=== PATIENT | female | born 1955 | race Hispanic/Latino ===

== ENCOUNTER 2017-07-15 07:24 | Outpatient (CLI) | payer BC | END 2017-07-15 07:25 | disposition home or self-care (01) | LOC: BICMRI 07:24 | PROVIDERS: ATTEND Specialist | DX: M51.16 Intervertebral disc disorders with radiculopathy, lumbar region (principal); M48.07 Spinal stenosis, lumbosacral region; M99.83 Other biomechanical lesions of lumbar region; M47.24 Other spondylosis with radiculopathy, thoracic region | CPT/HCPCS: 72148 ==

== ENCOUNTER 2018-04-14 13:32 | Outpatient (CLI) | payer BC ==
--- NOTE | 2018-04-14 14:33 | RAD ---
LUMBAR SPINE SERIES FOUR VIEWS: History: Back pain, pain radiating down right leg. FINDINGS: The vertebral bodies are normal in height. There is fairly pronounced degenerative changes seen. Ther e is some mild disc narrowing at L1-2 and L2-3, more pronounced disc narrowing at L3-4 and spondyloli sthesis of approximately 8 mm of L4 on L5 with minimal disc narrowing. Pedicles are intact. On the flexion and extension views, there is limited motion demonstrated. There appears to be minimal increase in the listhesis on flexion. IMPRESSION: Arthritic changes of the spine. Spondylolisthesis of L4 on L5 which appears to increase slightly in f lexion. POS: TPC
== END 2018-04-14 13:33 | disposition home or self-care (01) ==
LOC: BICRAD 13:32
PROVIDERS: ATTEND Neurological Surgery
DX: M47.26 Other spondylosis with radiculopathy, lumbar region (principal); M43.16 Spondylolisthesis, lumbar region
CPT/HCPCS: 72120

== ENCOUNTER 2018-05-21 00:07 | Outpatient (CLI) | payer BC ==
[2018-05-21 12:32] LABS: Hemoglobin 14.6 g/dL (12.0-16.0); Mean Corpuscular HGB CONC 34.5 g/dL (32.0-36.0); Mean Corpuscular Hemoglobin 30.1 pg (27.0-31.0); Mean Corpuscular Volume 87.3 fL (78.0-98.0); Mean Platelet Volume 8.1 fL (7.4-10.4); Platelet Count 193 thou/uL (130-400); RBC Distribution Width 11.2 % (11.5-14.5); Red Blood Cell (RBC) Count 4.84 mill/uL (4.20-5.40); White Blood Cell (WBC) Count 6.2 thou/uL (4.8-10.8)
[2018-05-21 13:25] LABS: PTT 28.6 SEC (22.9-36.1); Prothrombin Time 13.3 SEC (12.0-14.7)
== END 2018-05-21 00:08 | disposition home or self-care (01) ==
LOC: LABBT 00:07
PROVIDERS: ATTEND Neurological Surgery
DX: Z01.812 Encounter for preprocedural laboratory examination (principal); M48.061 Spinal stenosis, lumbar region without neurogenic claudication
CPT/HCPCS: 85027; 85610; 85730

== ENCOUNTER 2018-05-21 11:30 | Inpatient (IN) | payer BC ==
--- NOTE | 2018-05-19 07:35 | HP ---
HISTORY OF PRESENT ILLNESS: Ms. Tiesha Rodriguez is a very pleasant 62-year-old woman with chronic right-sided low back and radiating right leg pain. She has been evaluated for this years past and has managed her pain with injections with Dr. Cruz and her primary care physician, her sister also Dr. Cruz. 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 She feels she is getting some weakness in the right leg and some numbness and tingling there as well. At the end of days work, her back and legs are aching. It is difficult to lift her leg into the car to drive home. The pain is affecting her sleep at night. Lifting the straight leg on the right side exacerbates her pain. If she can get her back in just the proper position and leaning away from the right leg and keeping weight off that side, she seems to do a bit better. She is not having any left leg symptoms at all. She does not have any bowel or bladder symptoms to report. PAST MEDICAL HISTORY: Chronic allergies, diabetes, and osteoarthritis. PAST SURGICAL HISTORY: She denies past surgical history. MEDICATIONS: 1. Metformin. 2. Lyrica. 3. Aleve. ALLERGIES: CODEINE, WHICH CAUSES ITCHING AND VOMITING. FAMILY HISTORY: Ms. Rodriguez's mother has . She has diabetes. Father has of unknown cause. She has 3 children, who are alive with hypertension. SOCIAL HISTORY: The patient denies tobacco or other drug use and she denies alcohol use as well. REVIEW OF SYSTEMS: A 10-point review of systems has been completed and is negative other than in the above HPI. PHYSICAL EXAMINATION: VITAL SIGNS: Weight 194, height 62 inches. NEUROLOGIC: Cranial nerves intact. Gait antalgic, even weight off the right leg. Cerebellar exam, no truncal ataxia. No dysmetria. Motor examination; iliopsoas is strong on both sides, the quadriceps is strong, the EHL is strong and toe flexors are strong on both sides. She does have moderate weakness in the quadriceps on the right and anterior tibialis on the right. Sensory exam, there is no dermatomal sensory loss in L1, L2, L3, L4, L5, or S1. Reflexes are preserved at the ankles and are hypoactive on the left knee and absent on the right knee. Toes are downgoing. There is no clonus. Lower extremity exam, there is a positive straight leg raise on the right. Spine exam, there is moderate tenderness in the SI joint. IMAGING: I reviewed MR imaging of the lumbar spine. There is some moderate lateral recess stenosis L3-L4. At L4-L5, there is a far lateral disk herniation under the L4 nerve root. There is left-sided foraminal disease at L5-S1. Flexion- extension views grade 1 to 2 listhesis, not seen on MR at L4-L5 unstable in flexion-extension, greater than 1 mm. ASSESSMENT AND PLAN: Intervertebral disk disorder with radiculopathy of the lumbar region and spondylolisthesis of the lumbar region. Dr. Neff has offered decompression L3 through L5 with TLIF L4-L5. The patient has obtained informed consent. We have discussed the indications, risks, benefits, alternatives, expected results from surgery. The risks discussed included, but were not limited to, bleeding, infection, CSF leak, nerve damage, weakness, incontinence, cauda equina injury, arachnoiditis, paralysis, ventilator dependence, wheelchair dependence, loss of vision, hardware misplacement, cardiopulmonary complications of anesthesia or . Long-term complications discussed include, but were not limited to, degeneration of surrounding disks and the need for further surgery. The patient states she understands the risks and is willing to proceed with surgery. Job ID: [id number] [facility]
[2018-05-21 11:58] VITALS: BMI 34.5
[2018-05-25] MEDS ORDERED: Bupivacaine HCl 0.5%/Epinephrine 1:200,000/PF 30 ml Vial ONE (06:17)
[2018-05-25] MEDS ORDERED: Thrombin 5000 UNITS/5 ML VIAL ONE (06:18)
[2018-05-25] MEDS ORDERED: Sodium Chloride 0.9% 20 ML ONE (06:18)
[2018-05-25] MEDS ORDERED: Fentanyl 100 MCG/2 ML VIAL ONE ×4 (06:19→12:16)
[2018-05-25] MEDS ORDERED: Midazolam HCl 2 mg/2 ml Vial ONE (06:45)
[2018-05-25] MEDS ORDERED: Phenylephrine HCL 10 MG/ML VIAL ONE (08:32)
[2018-05-25] MEDS ORDERED: PROPOFOL 200 MG/20 ML VIAL ONE (09:01)
[2018-05-25] MEDS ORDERED: Glycopyrrolate 0.2 MG/ML 5 ML SYRINGE ONE (09:01)
[2018-05-25] MEDS ORDERED: ePHEDrine 50 MG/ML VIAL ONE (09:01)
[2018-05-25] MEDS ORDERED: Lidocaine 1% PF 5 ML VIAL ONE (09:01)
[2018-05-25] MEDS ORDERED: Rocuronium Bromide 10 MG/ML (10ML VIAL) ONE (09:01)
[2018-05-25] MEDS ORDERED: Ketorolac Tromethamine 30 MG/ML VIAL ONE (09:01)
[2018-05-25] MEDS ORDERED: Ondansetron PF 4 MG/2 ML Vial ONE (09:01)
[2018-05-25] MEDS ORDERED: PHENYLEPHRINE-NS 100 MCG/ML 10 ML SYRINGE ONE (09:01)
[2018-05-25] MEDS ORDERED: Mag-Al 1200 mg/1200 mg/30 ML UDCUP PO PRN (11:15)
[2018-05-25] MEDS ORDERED: Bisacodyl 10 MG SUPP PR PRN (11:15)
[2018-05-25] MEDS ORDERED: Milk Of Magnesia 30 ML UDCUP PO PRN (11:15)
[2018-05-25] MEDS ORDERED: Acetaminophen 650 MG Suppository PR PRN (11:15)
[2018-05-25] MEDS ORDERED: Promethazine HCl 25 MG/ML VIAL IM PRN ×2 (11:15→11:26)
[2018-05-25] MEDS ORDERED: Promethazine 25 MG TAB PO PRN (11:15)
[2018-05-25] MEDS ORDERED: Ondansetron PF 4 MG/2 ML Vial IVP PRN (11:15)
[2018-05-25] MEDS ORDERED: Acetaminophen/Codeine 30-300mg Tablet PO PRN (11:15)
[2018-05-25] MEDS ORDERED: diphenhydrAMINE 50 MG/ML VIAL IVP PRN (11:15)
[2018-05-25] MEDS ORDERED: Ondansetron HCl/PF 4 MG/2 ML Vial IVP PRN (11:26)
[2018-05-25] MEDS ORDERED: Morphine Sulfate 2 MG/ML SYRINGE SLOW IVP PRN (11:26)
[2018-05-25] MEDS ORDERED: Promethazine HCl 25 MG/ML VIAL SLOW IVP PRN (11:26)
--- NOTE | 2018-05-25 11:26 | OP ---
DATE OF PROCEDURE: 05/25/2018 [employer]RI[facility] [employer] SET UP OPERATOR RADIAL: Martha Clayton PA-C. PREOPERATIVE INDICATION: Treat pain and prevent neurological deterioration. PREOPERATIVE DIAGNOSES: Multilevel lumbar stenosis causing neurogenic claudication, unstable spondylolisthesis at L4-L5. POSTOPERATIVE DIAGNOSES: Multilevel lumbar stenosis causing neurogenic claudication, unstable spondylolisthesis at L4-L5. PROCEDURES PERFORMED: Decompressive laminectomy, medial facetectomy, foraminotomy L3-L4, L4-L5, transforaminal lumbar interbody arthrodesis with placement of intervertebral biomechanical device, L4-L5; posterolateral arthrodesis, L4-L5; pedicle screw and jaden instrumentation, L4-L5. PREOPERATIVE MEDICATIONS: Ancef 2 g IV. DRAIN NUMBER: 1. DRAIN TYPE: A 10-Icelandic Boyd. DESCRIPTION OF PROCEDURE: The patient was brought to the operating room. General endotracheal anesthesia was induced. The patient was positioned prone on the Candido frame with the appropriate padding for the chest and hips. A lateral fluoro radiograph was used to plan our incision. The lumbar skin was sterilely prepped and draped. We opened with a 10 blade knife and controlled bleeding with bipolar and monopolar cautery. We used monopolar cautery to dissect through subcutaneous tissues to the thoracodorsal fascia. We incised the fascia in the midline and reflected the paraspinal muscles off the spinous process and lamina of the L3, L4, and L5. A self-retaining retractor was placed and a lateral fluoro radiograph confirmed the levels upon which we were operating. We then placed a self-retaining retractor. We carried the dissection over the facet joints to identify the transverse process of L4 and L5 bilaterally. Using Adson and Kerrison rongeurs, we fashioned a laminectomy from L3 to the L5 lamina. We widened our laminectomy defect by performing medial facetectomies. We performed foraminotomies over the exiting nerve roots. The right L4 nerve root was the most compressed. We elected to open this foramen to access intervertebral space. We removed the pars interarticularis and the facet joint at L4-L5 on the right side. Through this opening, we accessed the intervertebral disk. We emptied disk contents using curettes and rongeurs. We brought a rectangular shaped bone rasp into the field. We measured the height of the interspace with bone rasps and found it to measure 11 mm in height. When the endplates were prepared for grafting, we brought a PEEK intervertebral graft into the field. The bone removed from our laminectomy was carefully morselized on the back table after soft tissue was removed from it. The morselized bone was added to demineralized bone matrix to form a fusion substrate and the substrate was packed into the center of the PEEK graft. The PEEK graft was advanced into the interspace under radiographic guidance to the appropriate depth. We turned our attention to pedicle screw instrumentation. Using bony anatomic landmarks, palpation of the medial portion of the pedicles, and a lateral fluoro radiograph as our guide, we chose the entry points for our pedicle screws. We advanced the bone awl through the pedicles into the vertebral bodies. We tapped the trajectories and we probed them. We found them completely encased in bone. We placed 6.5 mm diameter screws, which were 45 mm in length into the four pedicles. We generated a 360-degree image set using our isocentric C-arm, confirming adequate positioning of our pedicle screws at L4 and L5. We then irrigated copiously with bacitracin irrigation. We decorticated the transverse processes of L4 and L5 bilaterally. We placed rods into the screw heads and tightened caps over the rods. Using a torque/counter-torque mechanism, we ensured adequate tightness. After we had compressed across the interspace to keep our interbody graft in place. Over the decorticated transverse processes, we left demineralized bone matrix and morselized autograft as our posterior lateral fusion substrate. We controlled bleeding with gentle bipolar cautery. We tunneled the drain inferiorly through a separate stab incision. We treated the wound with vancomycin powder. We closed the wound in anatomical layers. We applied a sterile dressing. This was a clean case, no contamination. Job ID: [id number]
[2018-05-25] MEDS ORDERED: CHOLECALCIFEROL PO SCH (11:45)
[2018-05-25] MEDS ORDERED: Morphine 2 MG/ML SYRINGE ONE ×2 (12:19→12:49)
[2018-05-25] MEDS ORDERED: Promethazine HCl 25 MG/ML VIAL ONE (13:03)
[2018-05-25] MEDS ORDERED: CEFAZOLIN 2 GM in Premix Bag 1 BAG IVPB SCH (14:00)
[2018-05-25] MEDS: Sodium Chloride 0.9% 1,000 ML IV SCH ×2 (14:48→22:30)
[2018-05-25] MEDS: Morphine 4 MG/ML VIAL SLOW IVP PRN ×2 (15:08→16:41)
[2018-05-25] MEDS: metFORMIN 500 MG TAB PO SCH (16:55)
[2018-05-25] MEDS: Acetaminophen/Codeine 30-300mg Tablet PO PRN ×2 (17:40→22:30)
[2018-05-25] MEDS: CEFAZOLIN 2 GM in Premix Bag 1 BAG IVPB SCH (18:45)
[2018-05-25] MEDS: tiZANidine HCl 4 MG TAB PO PRN (21:16)
[2018-05-26] MEDS: CEFAZOLIN 2 GM in Premix Bag 1 BAG IVPB SCH ×2 (03:34→12:37)
[2018-05-26] MEDS: Acetaminophen 325 MG TAB PO PRN ×3 (03:53→16:26)
[2018-05-26] MEDS: metFORMIN 500 MG TAB PO SCH ×2 (08:00→17:21)
[2018-05-26] MEDS ORDERED: traMADol HCl 50 MG TAB PO PRN (08:15)
--- NOTE | 2018-05-26 08:39 | PRG ---
DATE OF SERVICE: 05/26/2018 I saw Tiesha Rodriguez in her hospital room this morning. She is postop day 1 from decompression and fusion of lumbar spine. Overnight, she had fever and difficulty with pain control. Her drain output, according to the nurse, was scant. 35 mL have been reported. On physical examination, Ms. Rodriguez is up and walking with assistance. She is getting to the bathroom and sitting. Her legs are moving well. There are no morning labs. No urinalysis. No chest x-ray to review. I do not know the glucose status currently. Plan is for Ms. Rodriguez to begin mobilization. She needs a chairback TLSO brace and I prefer [facility] due to their careful instruction and careful followup, which we have not experienced with the providers in the hospital. I asked Medicine to visit with her to help manage her diabetes and get a urinalysis and urine culture. We will get a chest x-ray. If the drain output remains low in spite of ambulation, then we will remove the drain today. She should be wearing a brace when she is up and out of bed. Job ID: [id number]
[2018-05-26] MEDS: traMADol HCl 50 MG TAB PO PRN (08:44)
--- NOTE | 2018-05-26 09:01 | PRG ---
DATE OF SERVICE: 05/26/2018 SUBJECTIVE: Ms. Rodriguez is 1 day postop following laminectomy and TLIF. She is resting in her hospital bed when I entered. She does report pain, worse on back of her right leg compared to the left. She states that it is very similar to prior to surgery. She has been up using the restroom; however not walking the halls or working with physical therapy. The patient had a T-max of 101.3 and at 3:40 this morning, there was a drop in the blood pressure, overnight as well, the lowest reported was 75/41. This morning, it increased to 115/52. Fluids had been increased, respirations 16, heart rate 99. JENNIFER drain was at 35 ml in 12 hours. We will get a UA, checking if this is the source of her fever.We will remove her drain. We have encouraged her to use incentive spirometer regularly and continue to mobilize and work with PT. Job ID: [id number] MTDD
--- NOTE | 2018-05-26 10:33 | RAD ---
TWO VIEW CHEST: Comparison: 04-02-12 FINDINGS: Re-demonstration of a right suprahilar opacity. There is patchy opacification of the bilateral lower lung zones, new. Chest otherwise similar. IMPRESSION: 1. Interval development of multifocal pulmonary parenchymal opacities of the mid to inferior lung zon es bilaterally which may be related to atypical bilateral pneumonia. 2. Stable prominence of right suprahilar region which may relate to persistent area of vascular promi nence, similar to prior exam. POS: TPC
[2018-05-26 11:56] LABS: #Monocytes 0.6 thou/uL (0.11-0.59); #Neutrophils 6.9 thou/uL (1.40-6.50); %Basophils 0.2 % (0.0-1.0); %Eosinophils 0.4 % (0.0-10.0); %Lymphocytes 11.4 % (21.0-51.0); %Monocytes 6.8 % (0.0-10.0); %Neutrophils 81.1 % (42.0-75.0); Hemoglobin 11.4 g/dL (12.0-16.0); Mean Corpuscular HGB CONC 33.5 g/dL (32.0-36.0); Mean Corpuscular Hemoglobin 29.7 pg (27.0-31.0); Mean Corpuscular Volume 88.5 fL (78.0-98.0); Mean Platelet Volume 8.5 fL (7.4-10.4); Platelet Count 140 thou/uL (130-400); RBC Distribution Width 11.3 % (11.5-14.5); Red Blood Cell (RBC) Count 3.84 mill/uL (4.20-5.40); White Blood Cell (WBC) Count 8.5 thou/uL (4.8-10.8)
[2018-05-26] MEDS: Morphine 4 MG/ML VIAL SLOW IVP PRN ×2 (12:16→18:45)
[2018-05-26 12:41] LABS: Bilirubin Negative (Negative); Blood, Urine Negative (Negative); Clarity CLOUDY (Clear); Glucose, Urine (Dipstick) Negative (Negative); Leukocyte Small (Negative); Nitrite Negative (Negative); Protein, Urine (Dipstick) Negative (Neg-Trace); Specific Gravity, Urine 1.022 (1.002-1.036); Urobilinogen 0.2 mg/dL (0.2-1.0); pH, Urine 5.5 (5.0-9.0)
[2018-05-26 12:46] LABS: Bacteria/HPF None Seen HPF (None Seen); Hyaline Casts/LPF NONE SEEN LPF (0-3 Hyaline); RBC/HPF None Seen HPF (0-3)
[2018-05-26] MEDS: Sodium Chloride 0.9% 1,000 ML IV SCH (15:13)
[2018-05-26] MEDS: tiZANidine HCl 4 MG TAB PO PRN (20:54)
[2018-05-26] MEDS: Acetaminophen/Codeine 30-300mg Tablet PO PRN (20:55)
[2018-05-27] MEDS: Sodium Chloride 0.9% 1,000 ML IV SCH ×2 (05:29→21:04)
[2018-05-27] MEDS: tiZANidine HCl 4 MG TAB PO PRN (05:29)
[2018-05-27] MEDS: traMADol HCl 50 MG TAB PO PRN ×2 (05:29→21:04)
--- NOTE | 2018-05-27 07:48 | PRG ---
DATE OF SERVICE: 05/27/2018 I saw Tiesha Rodriguez in her hospital room this morning. She has been transferred to the general postoperative floor. She complains of some right lateral thigh tightness and tenderness over the greater trochanteric bursa. Ms. Rodriguez had fever since her operation, peaking yesterday at 102 degrees Fahrenheit. Her neurological examination this morning is stable. The drain output was minimal yesterday and was removed. Laboratory investigations did not reveal leukocytosis. There is no bacteria in the urinalysis. However, the chest x-ray shows some opacifications. My plan today is to have her evaluated for inpatient rehabilitation. She will need to work with Physical Therapy for more aggressive mobilization. Internal Medicine/Hospitalist Service was consulted 2 days ago yet floor administration did not forward the request. We are awaiting their input on the fever. She most likely had a community-acquired lung infection that she brought with her to the hospital, as this immediate postoperative fever would be unusual for hospital acquired event. Once we have an antibiotic plan and disposition arranged, she can be transferred to inpatient rehabilitation. Job ID: [id number] MTDD
--- NOTE | 2018-05-27 09:31 | PDOC.EVN ---
Event Note - Event Note Event Note: Patient was found to have a Sound Hospitalist consult pending from 05/25/18. The consult was not called in untill late last night when [place] was [place] [facility] [place] [id number].Discussed with Charge Nurse at [place] [id number] today,Ms Wilkins to file an IRIS report.IM team will follow.
[2018-05-27] MEDS ORDERED: HumaLOG 300 UNITS/3 ML VIAL SC PRN ×2 (09:32)
[2018-05-27] MEDS ORDERED: Dextrose 50% Abboject 50 ML SYRINGE SLOW IVP PRN (09:32)
[2018-05-27] MEDS ORDERED: Dextrose 5% in Water 1,000 ML IV PRN (09:32)
[2018-05-27] MEDS: metFORMIN 500 MG TAB PO SCH ×2 (10:07→19:26)
[2018-05-27] MEDS: diphenhydrAMINE 25 MG CAP PO PRN ×2 (10:08→23:29)
[2018-05-27 11:16] LABS: #Lymphocytes 1.2 thou/uL (1.20-3.40); #Monocytes 0.5 thou/uL (0.11-0.59); #Neutrophils 4.6 thou/uL (1.40-6.50); %Basophils 0.3 % (0.0-1.0); %Eosinophils 0.7 % (0.0-10.0); %Monocytes 8.5 % (0.0-10.0); %Neutrophils 72.5 % (42.0-75.0)
[2018-05-27 11:33] LABS: Anion Gap 8 mmol/L (10-20); BUN (Urea Nitrogen) 9 mg/dL (9.8-20.1); Calc. Creatinine Clearance 95 mL/min (70-130); Calcium 7.9 mg/dL (7.8-10.44); Carbon Dioxide 27 mmol/L (23-31); Chloride 104 mmol/L (98-107); Estimated GFR-MDRD 77; Glucose 216 mg/dL (80-115); Potassium 3.5 mmol/L (3.5-5.1); Sodium 135 mmol/L (136-145)
[2018-05-27 11:51] LABS: Hemoglobin 9.5 g/dL (12.0-16.0); Mean Corpuscular HGB CONC 33.9 g/dL (32.0-36.0); Mean Corpuscular Hemoglobin 30.5 pg (27.0-31.0); Mean Corpuscular Volume 89.8 fL (78.0-98.0); Mean Platelet Volume 8.5 fL (7.4-10.4); Platelet Count 109 thou/uL (130-400); Platelet Morphology Comment Appears Decreased; Red Blood Cell (RBC) Count 3.11 mill/uL (4.20-5.40); White Blood Cell (WBC) Count 6.4 thou/uL (4.8-10.8)
--- NOTE | 2018-05-27 14:33 | PDOC.PN ---
- Subjective Encounter Start Date: 05/27/18 Encounter Start Time: 14:32 Subjective: seen and examined.care discussed w family at bedside -: feels better but c/o itching,soreness in back at surgical site -: walking w RW w family - Objective MAR Reviewed: Yes Vital Signs & Weight: Vital Signs (12 hours) Temp Pulse Resp BP Pulse Ox 05/27/18 11:31 100.6 F H 89 92 H 107/70 93 L 05/27/18 08:24 98.5 F 85 18 98/65 92 L 05/27/18 04:15 99.7 F H 100 20 117/64 93 L Weight Weight 177 lb I&O: 05/26/18 05/27/18 05/28/18 06:59 06:59 06:59 Intake Total 1000 Output Total 35 Balance -35 1000 Result Diagrams: 05/27/18 10:53 05/27/18 10:53 Additional Labs: Accuchecks 05/27/18 05/26/18 11:15 17:28 POC Glucose 208 H 169 H Laboratory Tests 05/26/18 05/27/18 11:25 10:53 Neutrophils % 81.1 H 72.5 Phys Exam - Physical Examination Constitutional: NAD HEENT: PERRLA, moist MMs, sclera anicteric, oral pharynx no lesions Neck: no nodes, no JVD, supple, full ROM Respiratory: no wheezing, no rales, no rhonchi, clear to auscultation bilateral Cardiovascular: RRR, no significant murmur, no rub Gastrointestinal: soft, non-tender, no distention, positive bowel sounds Musculoskeletal: no edema, pulses present Neurological: non-focal, normal sensation, moves all 4 limbs Psychiatric: normal affect, A&O x 3 Skin: no rash Dx/Plan (1) PNA (pneumonia) Code(s): J18.9 - PNEUMONIA, UNSPECIFIED ORGANISM Status: Acute Comment: likely aspiration (2) Fever Code(s): R50.9 - FEVER, UNSPECIFIED Status: Acute Comment: Likley due to # 1.Not on any DVT prophylaxis but very ambulatory.Less likelihood of clots (3) Postoperative anemia Code(s): D64.9 - ANEMIA, UNSPECIFIED Status: Acute Comment: Monitor (4) DM2 (diabetes mellitus, type 2) Status: Chronic (5) Status post lumbar spine operative procedure for decompression of spinal cord Code(s): Z98.890 - OTHER SPECIFIED POSTPROCEDURAL STATES Status: Acute (6) Obesity (BMI 30.0-34.9) Code(s): E66.9 - OBESITY, UNSPECIFIED Status: Chronic - Plan plan discussed w/ family, DVT proph w/SCDs leucocytosis improving.add IV levaquin,mucinex,prn nebs,IS -: send blood Cx.UA clean.CXR reviewed.stat CBC & BMP checked and largley WNL -: clinically stable. afebrile for now -: add ISS. -: OT,PT,pain control.IM team will follow * . Review of Systems - Review of Systems Constitutional: negative: fever, chills, sweats, weakness, malaise, other Eyes: negative: Pain, Vision Change, Conjunctivae Inflammation, Eyelid Inflammation, Redness, Other Respiratory: negative: Cough, Dry, Shortness of Breath, Hemoptysis, SOB with Excertion, Pleuritic Pain, Sputum, Wheezing Cardiovascular: negative: chest pain, palpitations, orthopnea, paroxysmal nocturnal dyspnea, edema, light headedness, other Gastrointestinal: negative: Nausea, Vomiting, Abdominal Pain, Diarrhea, Constipation, Melena, Hematochezia, Other Genitourinary: negative: Dysuria, Frequency, Incontinence, Hematuria, Retention , Other Musculoskeletal: negative: Neck Pain, Shoulder Pain, Arm Pain, Back Pain, Hand Pain, Leg Pain, Foot Pain, Other Neurological: negative: Weakness, Numbness, Incoordination, Change in Speech, Confusion, Seizures, Other - Medications/Allergies Allergies/Adverse Reactions: Allergies Allergy/AdvReac Type Severity Reaction Status Date / Time No Known Allergies Allergy Verified 05/25/18 14:37 Medications: Current Medications Acetaminophen (Tylenol) 650 mg PO Q4H PRN PRN Reason: Headache/Fever or Pain Last Admin: 05/26/18 16:26 Dose: 650 mg Acetaminophen (Tylenol) 650 mg SD Q4H PRN PRN Reason: Headache/Fever or Pain Acetaminophen/Codeine Phosphate (Tylenol #3) 1 tab PO Q3H PRN PRN Reason: Mild Pain (1-3) Last Admin: 05/27/18 10:08 Dose: 1 tab Acetaminophen/Codeine Phosphate (Tylenol #3) 2 tab PO Q3H PRN PRN Reason: Moderate Pain (4-6) Last Admin: 05/26/18 20:55 Dose: 2 tab Al Hydroxide/Mg Hydroxide (Maalox) 30 ml PO Q4H PRN PRN Reason: Indigestion Albuterol/Ipratropium (Duoneb) 3 ml NEB [id number] PRN PRN Reason: SOB &/or Wheezing Bisacodyl (Dulcolax) 10 mg SD Q12H PRN PRN Reason: Constipation Dextrose/Water (Dextrose 50%) 25 gm SLOW IVP PRN PRN PRN Reason: Hypoglycemia Diphenhydramine HCl (Benadryl) 25 mg IVP Q6H PRN PRN Reason: Itching Diphenhydramine HCl (Benadryl) 25 mg PO Q6H PRN PRN Reason: Itching Last Admin: 05/27/18 10:08 Dose: 25 mg Glucagon (Glucagon) 1 mg IM PRN PRN PRN Reason: Hypoglycemia Guaifenesin (Mucinex) 600 mg PO Q12HR MONIE Sodium Chloride (Normal Saline 0.9%) 1,000 mls @ 75 mls/hr IV .[id number] MONIE Last Admin: 05/27/18 05:29 Dose: 1,000 mls Dextrose/Water (D5w) 1,000 mls @ 0 mls/hr IV .Q0M PRN PRN Reason: Hypoglycemia Levofloxacin 500 mg/ Device 100 mls @ 100 mls/hr IVPB 1100 MONIE Insulin Human Lispro (Humalog) 0 units SC .MODERATE SLIDING SC PRN PRN Reason: Moderate Correctional Scale Insulin Human Lispro (Humalog) 0 units SC .BEDTIME SLIDING SC PRN PRN Reason: Bedtime Correctional Scale Magnesium Hydroxide (Milk Of Magnesium) 30 ml PO Q12H PRN PRN Reason: Constipation Metformin HCl (Glucophage) 500 mg PO BID-[facility] Last Admin: 05/27/18 10:07 Dose: 500 mg Morphine Sulfate (Morphine) 2 mg SLOW IVP Q1H PRN PRN Reason: Moderate Breakthrough Pain Last Admin: 05/25/18 16:41 Dose: 2 mg Morphine Sulfate (Morphine) 4 mg SLOW IVP Q1H PRN PRN Reason: Severe Breakthrough Pain Last Admin: 05/26/18 18:45 Dose: 4 mg Ondansetron HCl (Zofran) 4 mg IVP DAILYPRN PRN PRN Reason: Nausea Pantoprazole Sodium (Protonix) 40 mg PO DAILY [facility] Last Admin: 05/27/18 10:07 Dose: 40 mg Cholecalciferol ( Vitamin D3) [Decara] 1 Tab 0 each PO Q7D MONIE Promethazine HCl (Phenergan) 12.5 mg PO Q4H PRN PRN Reason: Nausea/Vomiting Promethazine HCl (Phenergan) 12.5 mg IM Q4H PRN PRN Reason: Nausea/Vomiting Sodium Chloride (Flush - Normal Saline) 10 ml IVF PRN PRN PRN Reason: Saline Flush Last Admin: 05/26/18 12:20 Dose: 10 ml Tizanidine HCl (Zanaflex) 4 mg PO Q6H PRN PRN Reason: Muscle Spasm Last Admin: 05/27/18 05:29 Dose: 4 mg Tramadol HCl (Ultram) 50 mg PO Q4H PRN PRN Reason: Pain 4-6 Tramadol HCl (Ultram) 100 mg PO Q4H PRN PRN Reason: Pain (7-10) Last Admin: 05/27/18 05:29 Dose: 100 mg
[2018-05-27] MEDS: Acetaminophen 325 MG TAB PO PRN ×2 (17:50→23:29)
[2018-05-27] MEDS: guaiFENesin ER 600 MG TAB PO SCH (21:04)
[2018-05-28] MEDS: Acetaminophen 325 MG TAB PO PRN ×2 (03:51→20:23)
[2018-05-28 07:31] LABS: #Eosinphils 0.1 thou/uL (0.0-0.7); #Lymphocytes 0.5 thou/uL (1.20-3.40); #Monocytes 0.4 thou/uL (0.11-0.59); #Neutrophils 5.5 thou/uL (1.40-6.50); %Basophils 0.7 % (0.0-1.0); %Eosinophils 0.8 % (0.0-10.0); %Lymphocytes 7.4 % (21.0-51.0); %Monocytes 5.9 % (0.0-10.0); %Neutrophils 85.2 % (42.0-75.0); Hemoglobin 10.4 g/dL (12.0-16.0); Mean Corpuscular HGB CONC 34.5 g/dL (32.0-36.0); Mean Corpuscular Hemoglobin 29.9 pg (27.0-31.0); Mean Corpuscular Volume 86.7 fL (78.0-98.0); Mean Platelet Volume 8.3 fL (7.4-10.4); Platelet Count 133 thou/uL (130-400); RBC Distribution Width 10.7 % (11.5-14.5); Red Blood Cell (RBC) Count 3.49 mill/uL (4.20-5.40); White Blood Cell (WBC) Count 6.4 thou/uL (4.8-10.8)
[2018-05-28 07:44] LABS: Anion Gap 11 mmol/L (10-20); BUN (Urea Nitrogen) 7 mg/dL (9.8-20.1); Calc. Creatinine Clearance 103 mL/min (70-130); Calcium 8.6 mg/dL (7.8-10.44); Carbon Dioxide 24 mmol/L (23-31); Chloride 102 mmol/L (98-107); Estimated GFR-MDRD 84; Glucose 146 mg/dL (80-115); Potassium 3.5 mmol/L (3.5-5.1); Sodium 133 mmol/L (136-145)
[2018-05-28] MEDS: guaiFENesin ER 600 MG TAB PO SCH ×2 (08:46→20:14)
[2018-05-28] MEDS: Sodium Chloride 0.9% 1,000 ML IV SCH ×2 (08:46→21:30)
[2018-05-28] MEDS: metFORMIN 500 MG TAB PO SCH ×2 (08:46→17:11)
[2018-05-28] MEDS: diphenhydrAMINE 25 MG CAP PO PRN (11:01)
[2018-05-28] MEDS: Acetaminophen/Codeine 30-300mg Tablet PO PRN (11:01)
--- NOTE | 2018-05-28 11:31 | ULT ---
BILATERAL LOWER EXTREMITY VENOUS ULTRASOUND: COMPARISON: None. HISTORY: Bilateral lower extremity edema and limited mobility. TECHNIQUE: Multiplanar, don scale, and color Doppler images were obtained in a bilateral lower extremity venous ultrasound. Spectral analysis of the Doppler waveforms was performed. FINDINGS: The bilateral common femoral veins, profunda femoral veins, superficial femoral veins, and popliteal veins are normal in appearance without visible thrombus. These vessels demonstrate normal compressio n, flow, and augmentation. The posterior tibial veins and greater saphenous veins are also patent. IMPRESSION: No evidence of deep vein thrombosis. POS: SUMIT
--- NOTE | 2018-05-28 12:52 | PDOC.EVN ---
Event Note - Event Note Event Note: Chart reviewed. care discussed w RN. pt still with high fever.started on levaquin yesterday for possible B/L PNA. Cx negative so far. Doppler LE negative for DVT. May need to rule out infection at operated site.will consult ID.
--- NOTE | 2018-05-28 16:24 | CON ---
DATE OF CONSULTATION: 05/28/2018 REASON FOR CONSULTATION: Fever after laminectomy. HISTORY OF PRESENT ILLNESS: A 62-year-old patient, who has a history of type 2 diabetes mellitus, osteoarthritis, and developed back pain with radiculopathy of the right leg. After failure of conservative management, she underwent a decompressive laminectomy with instrumentation, interbody device placement by Dr. Neff. Now, the patient had developed fever. She denies any headaches. The back pain is still quite intense and the radiculopathy is still present. No sore throat, odynophagia, or dysphagia. Some cough, but no sputum production. No ear pain. Some nasal obstipation. No chest pain. No abdominal pain. Voiding without difficulty. No joint symptoms outside the area of involvement. PAST MEDICAL HISTORY: Type 2 diabetes, osteoarthrosis, and chronic back pain. ALLERGIES: ALLERGY HISTORY TO CODEINE WITH ITCHING AND VOMITING. FAMILY HISTORY: Diabetes, type 2. SOCIAL HISTORY: She works at [employer]. Never smoker. No alcoholic beverage use. CURRENT MEDICATIONS: 1. Tylenol. 2. Maalox. 3. DuoNeb. 4. Dulcolax. 5. Benadryl. 6. Insulin. 7. Levofloxacin. 8. Morphine. 9. Tizanidine. 10. Tramadol. PHYSICAL EXAMINATION: VITAL SIGNS: T-max 102, blood pressure 120/68, pulse 117, respirations 18, and O2 sat 92% to 96%. GENERAL: Appears in some distress from pain in the back area. The incision in the area of the surgical procedure appears in normal postop characteristics. There is no erythema or swelling. No drainage noted. Mild tenderness. She has peripheral IV access. No Thomason catheter. HEENT: Ocular movements conjugate. Sclerae are white. Pupils are equal. Oral cavity normal. NECK: Supple. LUNGS: Symmetric, clear breath sounds. HEART: S1 and S2. Regular rate. No S3 or S4. ABDOMEN: Soft, not distended or tender. No ascites. No bladder distention. EXTREMITIES: No full joint inflammatory activity. Pulses are 1+ in dorsalis pedis. She has limitations in movements because of pain in the back area and radiculopathy. Cognitive function appears to be intact. LABORATORY DATA: White cell count 6.4, hemoglobin 10.4, and platelets 133 with 85% neutrophils. Sodium 133, creatinine 0.76. Do not have liver profile ordered. 4 to 6 wbc's in urinalysis. Microbiology with respiratory PCR panel with respiratory syncytial virus. Parainfluenza 3 detected. ASSESSMENT AND DISCUSSION: 1. Type 2 diabetes, chronic back pain with recent laminectomy with fusion/instrumentation. 2. Postop fever, likely secondary to respiratory viral infection, both RSV as well as parainfluenza. The patient needs droplet precautions and conservative measures. I would recommend discontinuation of antimicrobial therapy at this point. Job ID: [id number]
--- NOTE | 2018-05-29 03:58 | PRG ---
DATE OF SERVICE: 05/28/2018 SUBJECTIVE: Ms. Rodriguez is 3 days postop from lumbar laminectomy and fusion. She is sitting up, eating breakfast when I see her this morning. She is about to get into the shower with self. She continues to run a temperature even with medications started. UTI screen yesterday was negative and pneumonia was found and medications were started yesterday. The patient states that she was walking yesterday with physical therapy as well as with the help of her family and friends throughout the hallway. The patient is anxious to get home. We will order Doppler ultrasound of the lower extremities to rule out any DVT and any further reason for her fever. The patient once has her temperature control and proper antibiotics for home use, the patient was either discharged home or to rehab if seems necessary. Job ID: [id number]
[2018-05-29] MEDS: Acetaminophen 325 MG TAB PO PRN ×2 (04:43→12:24)
[2018-05-29 08:14] VITALS: BP 131/74; TEMP 99.7
[2018-05-29] MEDS: metFORMIN 500 MG TAB PO SCH (08:58)
[2018-05-29] MEDS: guaiFENesin ER 600 MG TAB PO SCH (08:58)
--- NOTE | 2018-05-29 12:20 | PRG ---
DATE OF SERVICE: 05/29/2018 I saw Ms. Rodriguez in our hospital room this morning. Her postoperative fever is likely related to influenza, according to our colleagues in Infectious Disease. Antibiotic regimen has been stopped. Ms. Rodriguez feels sick and not quite up to going home yet. Michael still has fevers with a T-max of 100.2 degrees Fahrenheit. Her neurological function is quite good and the legs feel better than the day before surgery. I believe Ms. Rodriguez to be safe for activities of daily living. We will aim for discharge as soon as she is able to care for herself better. I asked her to walk as frequently as possible. If she walks in the hallways of the hospital, she will need to wear a mask. Job ID: [id number]
--- NOTE | 2018-05-29 14:05 | PDOC.PN ---
- Subjective Encounter Start Date: 05/29/18 Encounter Start Time: 14:03 Subjective: seen and examined. continues to feel weak and on and off fever -: care discussed w family at bedside - Objective MAR Reviewed: Yes Vital Signs & Weight: Vital Signs (12 hours) Temp Pulse Resp BP Pulse Ox 05/29/18 07:33 99.7 F H 94 18 131/74 94 L 05/29/18 04:00 101.1 F H 106 H 16 119/70 95 Weight Weight 177 lb I&O: 05/28/18 05/29/18 05/30/18 06:59 06:59 06:59 Intake Total 2225 1012 Balance 2225 1012 Result Diagrams: 05/28/18 07:18 05/28/18 07:18 Additional Labs: Accuchecks 05/29/18 05/28/18 05/28/18 05:02 20:13 15:49 POC Glucose 122 H 159 H 143 H Microbiology 05/28/18 Unknown Nasopharyngeal swab Respiratory Virus Panel (PCR) - Final 05/27/18 11:03 Venous blood - Left Hand Blood Culture - Preliminary Specimen has been received and culture in progress. No Growth to date. 05/27/18 10:53 Venous blood - Left Arm Blood Culture - Preliminary Specimen has been received and culture in progress. No Growth to date. Phys Exam - Physical Examination Constitutional: NAD HEENT: PERRLA, moist MMs, sclera anicteric, oral pharynx no lesions Neck: no nodes, no JVD, supple, full ROM Respiratory: no wheezing, no rales, no rhonchi, clear to auscultation bilateral Cardiovascular: RRR, no significant murmur, no rub Gastrointestinal: soft, non-tender, no distention, positive bowel sounds Musculoskeletal: no edema, pulses present Neurological: non-focal, normal sensation, moves all 4 limbs Psychiatric: normal affect, A&O x 3 Skin: no rash Dx/Plan (1) Influenza A Code(s): J10.1 - FLU DUE TO OTH IDENT INFLUENZA VIRUS W OTH RESP MANIFEST Status: Acute (2) Fever Code(s): R50.9 - FEVER, UNSPECIFIED Status: Acute Comment: due to Influenza.Pt out of treatment window (3) PNA (pneumonia) Code(s): J18.9 - PNEUMONIA, UNSPECIFIED ORGANISM Status: Acute Comment: likely aspiration .Abx stooped per ID recs (4) Postoperative anemia Code(s): D64.9 - ANEMIA, UNSPECIFIED Status: Acute Comment: Monitor (5) DM2 (diabetes mellitus, type 2) Status: Chronic (6) Status post lumbar spine operative procedure for decompression of spinal cord Code(s): Z98.890 - OTHER SPECIFIED POSTPROCEDURAL STATES Status: Acute (7) Obesity (BMI 30.0-34.9) Code(s): E66.9 - OBESITY, UNSPECIFIED Status: Chronic - Plan DVT proph w/SCDs supportive care. OK to DC from IM stand point when cleared by NS -: appreciate ID recs. -: NO DVT on doppler LExt b/l * . Review of Systems - Review of Systems Constitutional: fever, weakness, malaise ENT: negative: Ear Pain, Ear Discharge, Nose Pain, Nose Discharge, Nose Congestion, Mouth Pain, Mouth Swelling, Throat Pain, Throat Swelling, Other Respiratory: negative: Cough, Dry, Shortness of Breath, Hemoptysis, SOB with Excertion, Pleuritic Pain, Sputum, Wheezing Cardiovascular: negative: chest pain, palpitations, orthopnea, paroxysmal nocturnal dyspnea, edema, light headedness, other Gastrointestinal: negative: Nausea, Vomiting, Abdominal Pain, Diarrhea, Constipation, Melena, Hematochezia, Other Genitourinary: negative: Dysuria, Frequency, Incontinence, Hematuria, Retention , Other Musculoskeletal: negative: Neck Pain, Shoulder Pain, Arm Pain, Back Pain, Hand Pain, Leg Pain, Foot Pain, Other - Medications/Allergies Allergies/Adverse Reactions: Allergies Allergy/AdvReac Type Severity Reaction Status Date / Time No Known Allergies Allergy Verified 05/25/18 14:37
[2018-05-29] MEDS ORDERED: Oseltamivir 75 MG CAP PO SCH (21:00)
--- NOTE | 2018-06-01 11:54 | PQF ---
BARBARA RODRIGUEZ L GERARD MD [id number] [facility] [id number] CLINICAL DOCUMENTATION CLARIFICATION FORM: POST DISCHARGE Once again, the hospital records personnel has asked me to change the medical chart on a patient after the fact. This query, like all others I have seen, makes no difference in the patient care, outcome, nor prognosis. As best I can tell, the query is made in order that the hospital can bill, code, and collect from this and future cases. I will once again comply. Ms. Rodriguez came to the hospital for an operation on her spine, and she recovered nicely. During her stay, she developed a fever and some mild opacities on chest radiographs. Although antibiotics were started for presumptive pneumonia , our infectious disease colleagues felt the fever and lung findings were due to influenza virus infection and antibiotics were stopped. Given the rapid onset of fever, it makes sense that the patient was exposed to the virus prior to admission and became symptomatic after the surgery. All of this information was readily available in the chart prior to this note. You're welcome. MING
== END 2018-05-29 13:38 | disposition home or self-care (01) | DRG 460 ==
LOC: SURG A 05-25 05:40 → 3SE 05-25 14:26 → SURG B 05-26 19:35
PROVIDERS: ADMIT Neurological Surgery; ATTEND Neurological Surgery
PROC: 0SG00AJ Fusion of Lumbar Vertebral Joint with Interbody Fusion Device, Posterior Approach, Anterior Column, Open Approach (ICD-10-PCS; principal; 2018-05-25)
PROC: 01NB0ZZ Release Lumbar Nerve, Open Approach (ICD-10-PCS; 2018-05-25)
DX: M51.16 Intervertebral disc disorders with radiculopathy, lumbar region (principal); M43.16 Spondylolisthesis, lumbar region; M48.061 Spinal stenosis, lumbar region without neurogenic claudication; J10.89 Influenza due to other identified influenza virus with other manifestations; R50.9 Fever, unspecified; E11.9 Type 2 diabetes mellitus without complications; M19.90 Unspecified osteoarthritis, unspecified site; E66.9 Obesity, unspecified; Z68.34 Body mass index [BMI] 34.0-34.9, adult; D64.9 Anemia, unspecified; Z79.84 Long term (current) use of oral hypoglycemic drugs; Z79.899 Other long term (current) drug therapy; Z79.1 Long term (current) use of non-steroidal anti-inflammatories (NSAID); Z88.8 Allergy status to other drugs, medicaments and biological substances
CPT/HCPCS: 36415; 36416; 71046; 76000; 80048; 81001; 85025; 87040; 87086; 87633; 87798; 93970; C1713; C1768; J0131; J0670; J1885; J1956; J2001; J2250; J2270; J2370; J2405; J2550; J2704; J3010; J3370; J3490; Q0163

== ENCOUNTER 2018-07-20 09:31 | Outpatient (CLI) | payer BC ==
--- NOTE | 2018-07-20 10:24 | RAD ---
Exam: Lumbar spine 2 views HISTORY: Follow-up from lumbar fusion surgery COMPARISON: 04/14/2018 FINDINGS: 5 lumbar type bodies. Interval laminectomy at L4. Partial laminectomy at L3 and L5.. Bilate ral transpedicular screws at L4 and L5. No perihardware lucency. Disc prosthesis at L4-L5. Improved spondylolisthesis. Currently there is 4 mm of anterolisthesis of L4 upon L5 (previously 8 mm of anterolisthesis). IMPRESSION: Uncomplicated lumbar fusion.
== END 2018-07-20 09:32 | disposition home or self-care (01) ==
LOC: TBSIIMAG 09:31
PROVIDERS: ATTEND Neurological Surgery
DX: M43.16 Spondylolisthesis, lumbar region (principal); Z98.1 Arthrodesis status
CPT/HCPCS: 72100

== ENCOUNTER 2018-09-06 08:32 | Outpatient (CLI) | payer BC ==
--- NOTE | 2018-09-06 10:58 | RAD ---
LUMBAR SPINE SERIES 2 VIEWS: Date: 09/06/18 HISTORY: Continued low back pain since surgery in May. COMPARISON: 07/20/18 study. FINDINGS: Bilateral pedicle screws at L4-5 and disc implant, and laminectomy changes are again demonstrated. I do not see any definite change. The spondylolisthesis is stable. Disc narrowing at L3-4 is again note d. IMPRESSION: Stable postoperative change at the L4-5 level. POS: [facility]
== END 2018-09-06 08:33 | disposition home or self-care (01) ==
LOC: BICRAD 08:32
PROVIDERS: ATTEND Neurological Surgery
DX: M54.16 Radiculopathy, lumbar region (principal); Z98.890 Other specified postprocedural states
CPT/HCPCS: 72100

== ENCOUNTER 2018-10-01 07:43 | Outpatient (CLI) | payer BC ==
--- NOTE | 2018-10-01 08:47 | RAD ---
RIGHT HIP 2 VIEWS: Date: 10/01/18 HISTORY: Low back pain radiating down to right hip. FINDINGS: There are no signs of fracture. There is minimal osteophytic change of the hip. Postoperative changes of the lumbar spine are noted. IMPRESSION: No acute findings. Minimal osteophytic change of the hip. POS: [facility]
--- NOTE | 2018-10-01 08:48 | RAD ---
LUMBAR SPINE SERIES 3 VIEWS WITH FLEXION AND EXTENSION: Date: 10/01/18 HISTORY: Postop, back pain. COMPARISON: 09/06/18 study. FINDINGS: Bilateral pedicle screws have been placed at the L4-5 level. Markers of disc implant are within the c onfines of the disc level itself. There is a minimal spondylolisthesis of L4 on L5, not appreciably c hanging between flexion and extension views. Marked degenerative disc narrowing is seen at L3-4. IMPRESSION: Postoperative changes of the spine. POS: [facility]
[2018-10-01] MEDS ORDERED: Gadobenate Dimeglumine 529 MG/1 ML (20ML VIAL) ONE (09:00)
[2018-10-01 09:03] LABS: Estimated GFR-MDRD - POC Greater than 90
--- NOTE | 2018-10-01 12:28 | MRI ---
MRI LUMBAR SPINE WITH AND WITHOUT CONTRAST: Date: 10/01/18 INDICATION: Low back pain. Back surgery 05/25/18. Comparison made to MRI lumbar spine dated 11/26/16. FINDINGS: Postoperative changes are now noted. Pedicle screws are present at L4 and L5. The lumbar vertebra continue to maintain height. There is a slight posterolisthesis at L3-4 and a bro ad based disc protrusion at L3-4, slightly more pronounced than on the prior exam. Mild disc bulges at L1-2 and L2-3 appear stable from prior exam. Laminectomy changes are seen at L3-4 and L4-5 levels. Small epidural fluid signal collection is seen at the midline posterior to the thecal sac at the L3-4 level. This small fluid collection measures 12 mm width x 6 mm AP dimension in the axial plane. A se cond tiny fluid collection seen slightly inferior at the same location measuring 6-8 mm. There is a larger fluid collection epidurally posteriorly at the laminectomy site at the L4-5 level a nd extending inferior. This fluid dense collection measures 2.0 cm craniocaudal in the coronal plane x approximately 1.0 cm AP dimension in the axial plane x 2.0 cm width in the axial plane. There is another small fluid collection seen in the subcutaneous tissues below the skin incision post eriorly which extends from the L2 level through the L5-S1 disc level. This collection has a total crane manager niocaudal dimension of 9-10 cm and has an AP dimension in the sagittal plane of 8-10 mm. The posterior epidural fluid collections, as well as the subcutaneous fluid collection, all exhibit p eripheral enhancement on the postcontrast images. Infectious process with abscess should be excluded. IMPRESSION: 1. Postoperative changes are now noted with pedicle screws at L4 and L5, and posterior laminectomy c hanges at L3-4 and L4-5. 2. There are posterior epidural fluid collections seen at L3-4 and L4-5 as described above and there is a fluid signal collection seen in the subcutaneous tissues posteriorly extending 10.0 cm cranioca udal dimension as noted above. Diffuse enhancement surrounds all of these fluid dense collections. In fection and abscess should be excluded. 3. Persistent disc protrusion at L3-4 compresses the thecal sac with mild central canal stenosis. POS: [facility]
== END 2018-10-01 07:44 | disposition home or self-care (01) ==
LOC: SCSMRI 07:43
PROVIDERS: ATTEND Neurological Surgery
DX: M54.5 Low back pain (principal); M43.16 Spondylolisthesis, lumbar region; M25.551 Pain in right hip; M25.751 Osteophyte, right hip; M51.36 Other intervertebral disc degeneration, lumbar region; M48.061 Spinal stenosis, lumbar region without neurogenic claudication; Z98.890 Other specified postprocedural states
CPT/HCPCS: 72100; 72158; 82565; A9577

== ENCOUNTER 2019-10-12 07:46 | Outpatient (CLI) | payer MEDICARE ==
--- NOTE | 2019-10-12 09:39 | MRI ---
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 COMPARISON: 10/01/2018 TECHNIQUE: Multiple sequences obtained in axial and sagittal planes, pre and post IV injection of gadolinium-bas ed contrast agent. FINDINGS: 5 lumbar-type vertebrae. Conus medullaris terminates at L1. Vertebral body heights are maintained. Mu ltilevel degenerative disc disease again demonstrated, including Schmorl's nodes at T11-T12, L1-2, L2-3, at L3-4; and disc space narrowing of varying degrees, moderate at L4-5 and moderate to severe a t L3-4. Bilateral pedicle screws at L4-5 again demonstrated. The previously demonstrated deep and superficial retrospinal postsurgical fluid collections are no lo nger present. Edema in the bilateral paramedian posterior perispinal spaces at lower levels, remains. No signs of arachnoiditis. T11-12: Imaged only on sagittal sequences. There is a left-central focal chronic disc herniation whic h is unchanged. No high-grade central spinal canal stenosis or high-grade neural foraminal stenosis. T12-L1:No central or neural foraminal stenosis. L1-2:Chronic right lateral and far lateral focal disc herniation causing mild-moderate right neural f oraminal stenosis. No left neural foraminal stenosis. No central spinal canal stenosis. No interval change. L2-3:Diffuse disc bulge encroaches upon bilateral neural foramina, causing bilateral neural foraminal mild stenosis. Minimal central spinal canal stenosis. Mild ligamentum flavum thickening. Mild bilateral facet DJD. No major interval change. L3-4:Again noted is the decompressive laminectomy defect. Slight retrolisthesis of L3 on L4. Prominen t diffuse disc bulge. Apparent superimposed broad-based central and bilateral paracentral disc herniation indents ventral aspect of thecal sac and contacts the bilateral L4 nerve roots. The toni ctomy defect accommodates this, such that there is no central spinal canal stenosis. Moderate right neural foraminal stenosis. The high-grade left neural foraminal stenosis appears minimally worse, wit h effacement of fat signal in the neural foramen, resulting in now severe left neural foraminal stenosis. L4-5:Mild grade 1 anterolisthesis of L4 on L5 stabilized by the bilateral pedicle screws. Interbody g raft material in the disc space. Generous caliber of spinal canal and thecal sac due to decompressive laminectomy defect. Mild bilateral neural foraminal stenosis. No interval change other than resolution of the fluid collection posterior to the thecal sac. L5-S1:Chronic left subarticular zone (lateral recess) stenosis due to combination of moderate left de generative facet hypertrophy and chronic left lateral disc herniation superimposed on diffuse disc bulge, plus what may be postsurgical scar tissue surrounding the left S1 nerve. Moderate left neural foraminal stenosis. Mild to moderate right neural foraminal stenosis. No central spinal canal stenosis. No interval change. Mild to moderate right facet DJD. IMPRESSION: 1) status post decompressive midline laminectomies at L3-4 and L4-5. 2) status post posterior lumbar interbody fusion with hardware at L4-5. 3) severe left neural foraminal stenosis at L3-4 appears worse than before. 4.) Left lateral recess stenosis at L5-S1, bilateral lateral recess stenosis at L3-4, and right far l ateral disc herniation at L1-2, are all unchanged. 5) interval resolution of the retrospinal postoperative fluid collections.
[2019-10-12] MEDS ORDERED: Magnevist 469MG/ML 20 ML VIAL ONE (15:31)
== END 2019-10-12 07:47 | disposition home or self-care (01) ==
LOC: BICMRI 07:46
PROVIDERS: ATTEND Specialist
DX: M51.16 Intervertebral disc disorders with radiculopathy, lumbar region (principal); M48.061 Spinal stenosis, lumbar region without neurogenic claudication
CPT/HCPCS: 72158; A9579

== ENCOUNTER 2022-04-16 09:35 | Outpatient (CLI) | payer MEDICARE | END 2022-04-16 09:36 | disposition home or self-care (01) | LOC: BICRAD 09:35 | PROVIDERS: ATTEND Family Medicine | DX: M19.90 Unspecified osteoarthritis, unspecified site (principal) ==

== ENCOUNTER 2022-05-23 06:57 | Outpatient (CLI) | payer MEDICARE | END 2022-05-23 06:58 | disposition home or self-care (01) | LOC: BICULT 06:57 | PROVIDERS: ATTEND Family Medicine | DX: N76.0 Acute vaginitis (principal); R10.84 Generalized abdominal pain; K76.89 Other specified diseases of liver | CPT/HCPCS: 76700; 76856 ==

== ENCOUNTER 2022-06-02 09:21 | Outpatient (CLI) | payer MEDICARE | END 2022-06-02 09:22 | disposition home or self-care (01) | LOC: BICRAD 09:21 | PROVIDERS: ATTEND Family Medicine | DX: M19.041 Primary osteoarthritis, right hand (principal) ==

== ENCOUNTER 2023-02-14 07:48 | Emergency (ER) | payer MEDICARE ==
[2023-02-14] MEDS ORDERED: Ketorolac Tromethamine 30 MG/ML VIAL ONE (10:35)
== END 2023-02-14 10:47 | disposition home or self-care (01) ==
LOC: ERS 07:48
DX: R51.9 Headache, unspecified (principal); E11.9 Type 2 diabetes mellitus without complications; I10 Essential (primary) hypertension
CPT/HCPCS: 70450; 96372; J1885

== ENCOUNTER 2024-01-05 09:23 | Outpatient (CLI) | payer MEDICARE | END 2024-01-05 09:24 | disposition home or self-care (01) | LOC: BICRAD 09:23 | PROVIDERS: ATTEND Family Medicine | DX: J20.9 Acute bronchitis, unspecified (principal); J98.09 Other diseases of bronchus, not elsewhere classified; R91.8 Other nonspecific abnormal finding of lung field | CPT/HCPCS: 71046 ==

== ENCOUNTER 2024-02-11 07:48 | Outpatient (CLI) | payer MEDICARE | END 2024-02-11 07:49 | disposition home or self-care (01) | LOC: BICMAMMO 07:48 | PROVIDERS: ATTEND Family Medicine | DX: Z12.31 Encounter for screening mammogram for malignant neoplasm of breast (principal); Z80.3 Family history of malignant neoplasm of breast | CPT/HCPCS: 77063; 77067 ==